=== PATIENT | female | born 1960 | race Two or more races ===

== ENCOUNTER 2017-10-07 05:06 | Day surgery (SDC) | payer OTHER ==
[~2017-10-07 05:06] MED LIST: CALCIO PO; CATAFLAN PO; CRESTOR20 MG PO; LISINOPRIL20 MG PO; M.V.I. ADULT10 ML IV; ZANTAC150 M3 PO
[2017-10-07] MEDS ORDERED: NAPROXEN250 MG PO (09:16)
== END 2017-10-07 13:55 | disposition home or self-care (01) ==
LOC: CIR.AMB 05:06
DX: N88.8 Other specified noninflammatory disorders of cervix uteri (principal)

== ENCOUNTER → 2018-08-22 | Outpatient (CLI) | payer OTHER ==
[~2018-08-22] MED LIST changes: +NAPROXEN250 MG PO
== END | disposition home or self-care (01) ==
LOC: SONOGRAMA 07:33
DX: E04.1 Nontoxic single thyroid nodule (principal)

== ENCOUNTER 2019-01-26 07:14 | Outpatient (CLI) | payer OTHER | END 2019-01-27 08:42 | disposition home or self-care (01) | LOC: SONOGRAMA 07:14 | DX: E04.1 Nontoxic single thyroid nodule (principal) ==

== ENCOUNTER 2021-07-24 07:39 | Outpatient (CLI) | payer OTHER | END 2021-07-24 07:41 | disposition home or self-care (01) | LOC: SONOGRAMA 07:39 | PROVIDERS: ATTEND Pathology Anatomic Pathology & Clinical Pathology | DX: E04.2 Nontoxic multinodular goiter (principal) ==